=== PATIENT | female | born 1990 | race Caucasian/White ===

== ENCOUNTER 2016-11-06 09:50 | Outpatient (RCR) | payer OTHER | END 2017-02-04 | LOC: WSOH | DX: S61.210A Laceration without foreign body of right index finger without damage to nail, initial encounter (principal); W54.0XXA Bitten by dog, initial encounter; Y99.0 Civilian activity done for income or pay ==

== ENCOUNTER 2017-02-08 11:23 | Emergency (ER) | payer BC ==
[~2017-02-08] VITALS: Ht 167.6 cm; Wt 75.0 kg
[2017-02-08] MEDS ORDERED: SYNTHROID 0.0.025 MG PO (11:30)
[2017-02-08] MEDS ORDERED: WELLBUTRIN XL150 MG PO (11:30)
[2017-02-08] MEDS ORDERED: EFFEXOR-XR150 MG PO (11:30)
[2017-02-08] MEDS ORDERED: AMOXICILLIN 8751 TAB PO (12:27)
[2017-02-08 12:40] VITALS: BP 106/66; PULSE 76; TEMP 98.4
== END 2017-02-08 13:16 | disposition home or self-care (01) ==
LOC: COL.ER 11:23
DX: S61.452A Open bite of left hand, initial encounter (principal); W55.01XA Bitten by cat, initial encounter; Y92.69 Other specified industrial and construction area as the place of occurrence of the external cause; Y99.0 Civilian activity done for income or pay

== ENCOUNTER 2017-02-12 09:17 | Outpatient (RCR) | payer SELFPAY ==
[~2017-02-12] VITALS: Ht 167.6 cm; Wt 75.0 kg
[2017-02-12 09:10] VITALS: BP 114/71; TEMP 98.6
[~2017-02-12 09:17] MED LIST: AMOXICILLIN 8751 TAB PO; EFFEXOR-XR150 MG PO; SYNTHROID 0.0.025 MG PO; WELLBUTRIN XL150 MG PO
[2017-02-12 09:35] VITALS: PULSE 80
[2017-03-15] MEDS ORDERED: NORCO 325 MG-51 TAB PO (13:18)
[2017-03-15] MEDS ORDERED: PRILOSEC 20MG20 MG PO (13:18)
[2017-03-16] MEDS ORDERED: FEOSOL45 MG PO (01:12)
[2017-03-17] MEDS ORDERED: BENTYL 20MG20 MG/TAB PO (15:52)
== END 2017-05-13 | disposition home or self-care (01) ==
LOC: COL.ER
DX: Z20.3 Contact with and (suspected) exposure to rabies (principal); Z23 Encounter for immunization

== ENCOUNTER 2017-03-15 09:22 | Emergency (ER) | payer BC ==
[~2017-03-15] VITALS: Ht 167.6 cm; Wt 75.0 kg
[2017-03-15 09:24] VITALS: BP 116/64; TEMP 98.8
[2017-03-15 10:28] LABS: PH 6 (5-8); URINE APPEARANCE Cloudy; URINE BACTERIA None Seen /hpf; URINE BILIRUBIN Negative (NEGATIVE); URINE BLOOD Negative (NEGATIVE); URINE COLOR Yellow; URINE GLUCOSE Negative (NEGATIVE); URINE KETONE Negative (NEGATIVE); URINE UROBILINOGEN >=4.0 mg/dL (NEGATIVE); URINE WBC 20-50 /hpf
[2017-03-15 10:56] LABS: BASO % 0.3 % (0.0-2.0); EOS # 0.1 (0.0-0.7); GRAN # 4.6 (1.4-6.5); LYMPH % 15.3 % (20.0-51.0); MEAN CELL VOLUME 73 fl (80.0-100.0); MEAN CORPUSCULAR HGB CONC 28 g/dl (33.0-37.0); MEAN PLATELET VOLUME 10.6 fl (7.4-10.4); MONO # 0.6 (0.1-0.6); MONO % 10.1 % (1.7-9.3); PLATELET COUNT 281 K/mm3 (130-400); RED BLOOD COUNT 3.83 M/mm3 (4.10-5.30); REDCELL DISTRIBUTION WIDTH-CV 18.2 % (11.5-14.5); WHITE BLOOD COUNT 6.3 K/mm3 (4.8-10.8)
[2017-03-15 11:02] LABS: HEMATOCRIT 27.8 % (37.0-47.0); HEMOGLOBIN 7.9 g/dl (12.5-16.0); MEAN CORPUSCULAR HEMOGLOBIN 21 pg (27.0-31.0)
[2017-03-15 12:01] LABS: ADJUSTED CALCIUM 9.1 mg/dL (8.4-10.2); ALBUMIN 3.9 gm/dL (3.5-5.0); BILIRUBIN,TOTAL 0.5 mg/dL (0.0-1.0); C-REACTIVE PROTEIN 5.6 mg/dL (0.0-0.9); CREATININE, serum 0.66 mg/dL (0.52-1.25); TOTAL PROTEIN 7.1 gm/dL (6.4-8.2)
[2017-03-15] MEDS ORDERED: NORCO 325 MG-51 TAB PO (13:18)
[2017-03-15] MEDS ORDERED: PRILOSEC 20MG20 MG PO (13:18)
[2017-03-15 13:31] VITALS: PULSE 88
[2017-03-16] MEDS ORDERED: FEOSOL45 MG PO (01:12)
== END 2017-03-15 13:31 | disposition home or self-care (01) ==
LOC: COL.ER 09:22
PROVIDERS: Physician Assistant
DX: K29.70 Gastritis, unspecified, without bleeding (principal); R07.1 Chest pain on breathing; E03.9 Hypothyroidism, unspecified; F32.9 Major depressive disorder, single episode, unspecified; F17.200 Nicotine dependence, unspecified, uncomplicated
CPT/HCPCS: J1170; J2405; J7030; Q9967

== ENCOUNTER 2017-03-16 01:04 | Observation (INO) | payer BC ==
[~2017-03-16] VITALS: Ht 167.6 cm; Wt 77.2 kg
[2017-03-16] VITALS (11 sets, daily range): BP systolic 97–120; BP diastolic 59–76; PULSE 67–85; TEMP 97.6–98.6
[~2017-03-16 01:04] MED LIST changes: +NORCO 325 MG-51 TAB PO; +PRILOSEC 20MG20 MG PO
[2017-03-16] MEDS ORDERED: FEOSOL45 MG PO (01:12)
[2017-03-16 02:22] LABS: BASO % 0.3 % (0.0-2.0); EOS # 0.1 (0.0-0.7); GRAN % 73.2 % (42.2-75.2); LYMPH # 0.9 (1.2-3.4); LYMPH % 13.3 % (20.0-51.0); MEAN CELL VOLUME 72 fl (80.0-100.0); MEAN CORPUSCULAR HGB CONC 30 g/dl (33.0-37.0); MONO # 0.8 (0.1-0.6); MONO % 12.1 % (1.7-9.3); PLATELET COUNT 263 K/mm3 (130-400); RED BLOOD COUNT 3.37 M/mm3 (4.10-5.30); WHITE BLOOD COUNT 6.8 K/mm3 (4.8-10.8)
[2017-03-16 02:34] LABS: HEMATOCRIT 24.1 % (37.0-47.0); HEMOGLOBIN 7.1 g/dl (12.5-16.0); MEAN CORPUSCULAR HEMOGLOBIN 21 pg (27.0-31.0)
[2017-03-16 02:38] LABS: ADJUSTED CALCIUM 8.7 mg/dL (8.4-10.2); ALBUMIN 3.6 gm/dL (3.5-5.0); BILIRUBIN,TOTAL 0.5 mg/dL (0.0-1.0); C-REACTIVE PROTEIN 7.2 mg/dL (0.0-0.9); CALCIUM 8.4 mg/dL (8.4-10.2); CREATININE, serum 0.63 mg/dL (0.52-1.25); POTASSIUM 3.9 mmol/L (3.4-5.0); TOTAL PROTEIN 6.7 gm/dL (6.4-8.2)
[2017-03-16 02:42] LABS: PH 6 (5-8); URINE APPEARANCE Hazy; URINE BACTERIA None Seen /hpf; URINE BILIRUBIN Negative (NEGATIVE); URINE BLOOD 3+ (NEGATIVE); URINE COLOR Yellow; URINE GLUCOSE Negative (NEGATIVE); URINE KETONE Negative (NEGATIVE); URINE UROBILINOGEN Negative (NEGATIVE)
[2017-03-16 07:59] LABS: BASO % 0.4 % (0.0-2.0); EOS % 0.8 % (0-4.0); GRAN # 3.3 (1.4-6.5); GRAN % 64.9 % (42.2-75.2); LYMPH # 1.1 (1.2-3.4); LYMPH % 21.8 % (20.0-51.0); MEAN CELL VOLUME 72 fl (80.0-100.0); MEAN CORPUSCULAR HGB CONC 29 g/dl (33.0-37.0); MEAN PLATELET VOLUME 11.4 fl (7.4-10.4); MONO # 0.6 (0.1-0.6); MONO % 11.7 % (1.7-9.3); PLATELET COUNT 253 K/mm3 (130-400); RED BLOOD COUNT 3.28 M/mm3 (4.10-5.30); REDCELL DISTRIBUTION WIDTH-CV 17.9 % (11.5-14.5); WHITE BLOOD COUNT 5.1 K/mm3 (4.8-10.8)
[2017-03-16 08:04] LABS: HEMATOCRIT 23.5 % (37.0-47.0); HEMOGLOBIN 6.9 g/dl (12.5-16.0); MEAN CORPUSCULAR HEMOGLOBIN 21 pg (27.0-31.0)
[2017-03-16 08:17] LABS: ADJUSTED CALCIUM 8.6 mg/dL (8.4-10.2); ALBUMIN 3.3 gm/dL (3.5-5.0); BILIRUBIN,TOTAL 0.4 mg/dL (0.0-1.0); CREATININE, serum 0.61 mg/dL (0.52-1.25); POTASSIUM 4.2 mmol/L (3.4-5.0); TOTAL PROTEIN 6.2 gm/dL (6.4-8.2)
[2017-03-16 09:46] LABS: TOTAL IRON BINDING CAPACITY 360 ug/dL (265-497)
[2017-03-16 10:13] LABS: FERRITIN 10 ng/mL (6-137)
[2017-03-16 13:51] LABS: HEMATOCRIT 23.5 % (37.0-47.0); HEMOGLOBIN 6.8 g/dl (12.5-16.0)
[2017-03-16 20:50] LABS: HEMOGLOBIN 6.9 g/dl (12.5-16.0)
[2017-03-17 03:45] VITALS: BP 120/68; PULSE 80; TEMP 98.6
[2017-03-17 08:04] VITALS: BP 111/61; PULSE 89; TEMP 98.8
[2017-03-17 11:32] VITALS: BP 106/70; PULSE 88; TEMP 98.5
[2017-03-17 11:34] VITALS: BP 133/87; PULSE 86; TEMP 98.1
[2017-03-17 15:47] VITALS: BP 105/63; PULSE 83; TEMP 97.9
[2017-03-17] MEDS ORDERED: BENTYL 20MG20 MG/TAB PO (15:52)
== END 2017-03-17 18:30 | disposition home or self-care (01) ==
LOC: COL.ER 01:04 → MEDICAL 03:33
PROVIDERS: Emergency Medicine; Nurse Practitioner Family
DX: K30 Functional dyspepsia (principal); D50.9 Iron deficiency anemia, unspecified; K31.89 Other diseases of stomach and duodenum; Z98.84 Bariatric surgery status; F32.9 Major depressive disorder, single episode, unspecified; F41.9 Anxiety disorder, unspecified; E03.9 Hypothyroidism, unspecified; Z91.14 Patient's other noncompliance with medication regimen; D64.89 Other specified anemias
CPT/HCPCS: 99223-AI; 99233-AI; C9113; G0378; J1170; J2250; J2405; J2916; J3010; J7030; J7050

== ENCOUNTER → 2017-03-20 | Outpatient (CLI) | payer BC ==
[~2017-03-20] MED LIST changes: +BENTYL 20MG20 MG/TAB PO; +FEOSOL45 MG PO
== END ==
LOC: COL.RAD 01-29 14:45
DX: R10.11 Right upper quadrant pain (principal); Z86.39 Personal history of other endocrine, nutritional and metabolic disease
CPT/HCPCS: A9537

== ENCOUNTER 2017-11-23 13:23 | Outpatient (RCR) | payer OTHER ==
[2017-12-14] MEDS ORDERED: CYANOCOBAL1000 MCG/M (10:27)
[2017-12-14] MEDS ORDERED: XANAX .25M0.25 MG/TA PO (10:29)
[2017-12-14] MEDS ORDERED: PHENERGAN 25 TA25 MG PO (12:58)
[2017-12-14] MEDS ORDERED: FLEXERIL5 MG PO (13:02)
== END 2018-02-21 | disposition home or self-care (01) ==
LOC: WSOH
DX: S61.131A Puncture wound without foreign body of right thumb with damage to nail, initial encounter (principal); W55.01XA Bitten by cat, initial encounter; Y92.214 College as the place of occurrence of the external cause; Y93.K9 Activity, other involving animal care; Y99.0 Civilian activity done for income or pay; Z79.899 Other long term (current) drug therapy; Z98.84 Bariatric surgery status

== ENCOUNTER 2017-12-14 10:05 | Emergency (ER) | payer BC ==
[~2017-12-14] VITALS: Ht 167.6 cm; Wt 72.7 kg
[2017-12-14 10:17] VITALS: BP 112/76; PULSE 63; TEMP 98.4
[2017-12-14] MEDS ORDERED: CYANOCOBAL1000 MCG/M (10:27)
[2017-12-14] MEDS ORDERED: XANAX .25M0.25 MG/TA PO (10:29)
[2017-12-14 12:06] LABS: HEMATOCRIT 37.2 % (37.0-47.0); HEMOGLOBIN 12.2 g/dl (12.5-16.0); MEAN CELL VOLUME 87 fl (80.0-100.0); MEAN CORPUSCULAR HEMOGLOBIN 28 pg (27.0-31.0); MEAN CORPUSCULAR HGB CONC 33 g/dl (33.0-37.0); MEAN PLATELET VOLUME 12.4 fl (7.4-10.4); PLATELET COUNT 158 K/mm3 (130-400); REDCELL DISTRIBUTION WIDTH-CV 14.8 % (11.5-14.5)
[2017-12-14 12:21] LABS: ALBUMIN 3.8 gm/dL (3.5-5.0); BILIRUBIN,TOTAL 0.2 mg/dL (0.0-1.0); CREATININE, serum 0.64 mg/dL (0.52-1.25); POTASSIUM 3.9 mmol/L (3.4-5.0)
[2017-12-14 12:35] LABS: COLLECTION METHOD CLEAN CATCH
[2017-12-14 12:46] LABS: MUCOUS Present /lpf; PH 6 (5-8); SQUAMOUS EPITHELIAL 0-2 /hpf; URINE APPEARANCE Clear; URINE BACTERIA None Seen /hpf; URINE BILIRUBIN Negative (NEGATIVE); URINE BLOOD Negative (NEGATIVE); URINE COLOR Yellow; URINE GLUCOSE Negative (NEGATIVE); URINE KETONE Trace (NEGATIVE); URINE LEUKOCYTE ESTERASE Negative (NEGATIVE); URINE NITRATE Negative (NEGATIVE); URINE PROTEIN(semi-quant) Negative (NEGATIVE); URINE RBC 0-2 /hpf; URINE UROBILINOGEN Negative (NEGATIVE)
[2017-12-14 12:49] LABS: TSH w REFLEX 1.61 uIU/mL (0.465-4.680)
[2017-12-14 12:54] LABS: BAND 6 % (0-10); LYMPHOCYTE 45 % (20.0-51.0); NEUTROPHILS 45 % (42.0-75.2)
[2017-12-14 12:55] LABS: HYPOCHROMIA 1+; PLATELET ESTIMATE NORMAL (NORMAL)
[2017-12-14 12:57] LABS: POIKILOCYTOSIS 1+
[2017-12-14] MEDS ORDERED: PHENERGAN 25 TA25 MG PO (12:58)
[2017-12-14] MEDS ORDERED: FLEXERIL5 MG PO (13:02)
== END 2017-12-14 13:09 | disposition home or self-care (01) ==
LOC: COL.ER 10:05
PROVIDERS: Physician Assistant
DX: R53.81 Other malaise (principal); R53.83 Other fatigue; R19.7 Diarrhea, unspecified; F41.9 Anxiety disorder, unspecified; F32.9 Major depressive disorder, single episode, unspecified; F12.90 Cannabis use, unspecified, uncomplicated; E03.9 Hypothyroidism, unspecified; Z98.84 Bariatric surgery status
CPT/HCPCS: J0780; J1885; J7030

== ENCOUNTER 2018-04-25 14:00 | Outpatient (RCR) | payer BC, OTHER ==
[2018-04-16 14:25] VITALS: BP 103/66; PULSE 64; TEMP 97.6
[2018-04-19 13:40] VITALS: BP 112/69; PULSE 91; TEMP 97
[2018-04-22 13:50] VITALS: BP 102/59; PULSE 76; TEMP 98.4
[~2018-04-25] VITALS: Ht 167.6 cm; Wt 74.0 kg
[~2018-04-25 14:00] MED LIST changes: +CYANOCOBAL1000 MCG/M; +FLEXERIL5 MG PO; +IRON TABLETS325 MG PO; +PHENERGAN 25 TA25 MG PO; +XANAX .25M0.25 MG/TA PO; +ZOFRAN ODT4 MG PO
[2018-04-25 14:35] VITALS: BP 105/70; PULSE 76; TEMP 98.3
== END 2018-04-25 15:51 | disposition home or self-care (01) ==
LOC: EUO 14:00
DX: E61.1 Iron deficiency (principal)
CPT/HCPCS: J2916

== ENCOUNTER 2019-04-22 14:11 | Outpatient (RCR) | payer OTHER | END 2019-04-30 11:08 | disposition home or self-care (01) | LOC: WSOH 14:11 | DX: S61.236A Puncture wound without foreign body of right little finger without damage to nail, initial encounter (principal); W55.01XA Bitten by cat, initial encounter; F41.9 Anxiety disorder, unspecified; E06.3 Autoimmune thyroiditis; E03.9 Hypothyroidism, unspecified; L70.9 Acne, unspecified; Y99.0 Civilian activity done for income or pay ==

== ENCOUNTER 2019-09-24 13:44 | Outpatient (RCR) | payer OTHER | END 2019-11-21 12:31 | disposition home or self-care (01) | LOC: WSOH 13:44 | DX: S63.502A Unspecified sprain of left wrist, initial encounter (principal); W55.01XA Bitten by cat, initial encounter; E07.9 Disorder of thyroid, unspecified; F41.8 Other specified anxiety disorders; Y99.0 Civilian activity done for income or pay; Z98.84 Bariatric surgery status ==

== ENCOUNTER → 2020-01-15 | Outpatient (CLI) | payer OTHER | LOC: ZCOL.LAB 15:17 | DX: Z20.828 Contact with and (suspected) exposure to other viral communicable diseases (principal) ==

== ENCOUNTER 2020-06-23 09:06 | Emergency (ER) | payer SELFPAY ==
[~2020-06-23] VITALS: Ht 167.6 cm; Wt 79.5 kg
[2020-06-23 09:11] VITALS: TEMP 97.5
[2020-06-23] MEDS ORDERED: MEDROL 4MG DOSPA4 MG PO (09:41)
[2020-06-23] MEDS ORDERED: PERCOCET 325 MG1 TA2 PO (09:41)
[2020-06-23] MEDS ORDERED: FLEXERIL 1010 MG/TAB PO (09:41)
[2020-06-23 13:43] VITALS: BP 113/71; PULSE 62
== END 2020-06-23 13:44 | disposition home or self-care (01) ==
LOC: COL.ER 09:06
DX: M54.5 Low back pain (principal); E06.3 Autoimmune thyroiditis
CPT/HCPCS: J1170; J1885; J2360; J2405; J7512